=== PATIENT | female | born 1960 | race Caucasian/White ===

== ENCOUNTER 2016-12-30 08:40 | Day surgery (SDC) | payer OTHER ==
[2016-12-29 10:39] VITALS: BMI 33.6
[2016-12-30] VITALS (13 sets, daily range): BP systolic 109–129; BP diastolic 64–78; PULSE 69–90; RESP 13–18; Ht 152.4 cm; Wt 77.0 kg
[~2016-12-30] VITALS: Ht 152.4 cm; Wt 77.0 kg
[~2016-12-30 08:40] MED LIST: CEFAZOLIN 1 GM INJ ONE
[2016-12-30] MEDS ORDERED: SOD CHLORIDE 0.9% 1,000 ML IV SCH (11:00)
[2016-12-30] MEDS ORDERED: CEFAZOLIN 2 GM/50 ML (PMX) 50 ML IVPB SCH (11:00)
[2016-12-30] MEDS ORDERED: BUPIVACAINE 0.25% (MPF) 10 ML 10 ML VIAL ONE (12:37)
[2016-12-30] MEDS ORDERED: POLYMYXIN/BACITRACIN 1L IRRIG ONE (12:37)
[2016-12-30] MEDS ORDERED: LIDOCAINE 2% (SDV) 5 ML INJ ONE (12:43)
[2016-12-30] MEDS ORDERED: MEPERIDINE 100 MG INJ ONE (12:43)
[2016-12-30] MEDS ORDERED: PROPOFOL 20 ML ONE (12:43)
[2016-12-30] MEDS ORDERED: NEOSTIGMINE 3 MG/3 ML SYRINGE ONE (12:43)
[2016-12-30] MEDS ORDERED: GLYCOPYRROLATE 0.4 MG INJ ONE (12:43)
[2016-12-30] MEDS ORDERED: ROCURONIUM 50 MG INJ ONE (12:43)
[2016-12-30] MEDS ORDERED: SUCCINYLCHOLINE CHLORIDE 100 MG/5 ML SYG IV ONE (12:43)
[2016-12-30] MEDS ORDERED: ONDANSETRON 4 MG INJ ONE (13:06)
[2016-12-30] MEDS ORDERED: METOCLOPRAMIDE 10 MG INJ ONE (13:07)
--- NOTE | 2016-12-30 13:35 | OPR ---
Date/Time of Note Date/Time of Note DATE: 12/30/16 TIME: 13:31 Operative Report Procedure Date: Dec 30, 2016 Preoperative Diagnosis incarcerated ventral hernia Postoperative Diagnosis same Operation Performed 1. laparoscopic incarcerated ventral hernia repair cpt code 93124 2. implantation of abdominal mesh cpt code 49837 3. therapeutic injection of subcutaneous marcaine cpt code 31918 Surgeon: Kyle TRIPLETT Anesthesia Type: general Estimated Blood Loss: 0 - 10 ml's Specimen: none Grafts/Implants ventralight ST 10x 15 cm Complications: no Indications This is a 56-year-old female with symptomatic incarcerated ventral hernia. She requests surgical repair. Risks alternatives benefits of procedure were discussed the patient. Patient expresses understanding and consents to the operation. Procedure Description Patient is taken to the OR and prepped and draped in usual sterile fashion. Surgical timeout was performed. IV antibiotics were given. Left upper quadrant 5 mm transverse incision is made with a 15 blade. Using a 5 mm optical trocar optical entry is performed. Pneumoperitoneum is established. Left flank 12 mm optical trocar and left lower quadrant 5 mm optical trochars were placed under direct visualization. Upon initial inspection there is incarcerated contents into the ventral hernia. This is you do this laparoscopically using laparoscopic harmonic donnie. The hernia defect is identified and closed primarily with interrupted #1 Prolene using Endo Close endoscopic techniques. Underlay mesh with 10 x [address] is used and affixed in place with secure strap. Approximate 4-5 cm of coverage in all directions was performed. There is good hemostasis. Ports removed under direct visualization. Skin incisions are closed with skin hardeep and local anesthesia was therapeutically injected throughout all incision sites. Dressings were applied. Kyle TRIPLETT Dec 30, 2016 13:35
[2016-12-30] MEDS ORDERED: HYDROCODONE/APAP (5/325) TAB PO ONE (14:00)
[2016-12-30] MEDS ORDERED: FENTAnyl 50 MCG/ML VIAL IV PRN ×3 (14:00)
[2016-12-30] MEDS ORDERED: DIPHENHYDRAMINE 50 MG INJ IV PRN (14:00)
[2016-12-30] MEDS ORDERED: ONDANSETRON 4 MG INJ IV PRN (14:00)
[2016-12-30] MEDS ORDERED: OXYCODONE/ACETAMINOPHEN (5/325) TAB PO PRN ×2 (14:00)
[2016-12-30] MEDS ORDERED: METOCLOPRAMIDE 10 MG INJ IV PRN (14:00)
[2016-12-30] MEDS ORDERED: MEPERIDINE 25 MG INJ IV PRN (14:00)
[2016-12-30] MEDS ORDERED: MIDAZOLAM 1 MG/ML 2 ML INJ IV PRN (14:00)
[2016-12-30] MEDS ORDERED: hydrALAzine 20 MG INJ IV PRN (14:00)
[2016-12-30] MEDS ORDERED: LABETALOL HCL 20MG INJ IV PRN (14:00)
[2016-12-30] MEDS ORDERED: HYDROmorphONE (0.2 MG/ML) 10ML SYG IV PRN ×3 (14:00)
[2016-12-30] MEDS ORDERED: EPHEDrine SULFATE 50 MG/5 ML SYG IV PRN (14:00)
== END 2016-12-30 15:10 | disposition home or self-care (01) ==
LOC: SDS 08:40
PROVIDERS: ATTEND Surgery
DX: K43.6 Other and unspecified ventral hernia with obstruction, without gangrene (principal); E66.9 Obesity, unspecified; Z68.33 Body mass index [BMI] 33.0-33.9, adult
CPT/HCPCS: 49653; C1781; J0690; J2175; J2405; J2710; J2765; J3010; Z7512; Z7610; J7999